=== PATIENT | female | born 1955 | race Caucasian/White ===

== ENCOUNTER 2017-06-14 12:10 | Emergency (ER) | payer OTHER ==
[~2017-06-14] VITALS: Ht 172.7 cm; Wt 132.7 kg
[~2017-06-14 12:10] MED LIST: Ecotrin PO; Feosol PO; Hydrodiuril,Oretic,E PO; Lipitor PO; NEXIUM20 MG PO; Percocet 5/325,Endoc PO; Senokot S,Pericolace PO; Zoloft PO; celeBREX PO
[2017-06-14] MEDS ORDERED: TESSALON PERLE100 MG PO (15:04)
[2017-06-14] MEDS ORDERED: ZITHROMAX Z-PA250 MG PO (15:04)
[2017-06-14] MEDS ORDERED: VENTOLIN HFA18 GM IH (15:15)
[2017-06-14 15:23] VITALS: BP 173/92
== END 2017-06-14 15:26 | disposition home or self-care (01) ==
LOC: EME 12:10
DX: J20.9 Acute bronchitis, unspecified (principal); I10 Essential (primary) hypertension
CPT/HCPCS: 71020; 87502; 87651 90; 94640; 99281; 99284